=== PATIENT | male | born 2000 | race African-American/Black ===

== ENCOUNTER 2019-06-10 21:31 | Emergency (ER) | payer SELFPAY ==
[2019-06-10] MEDS ORDERED: Bicillin LA 1.2 MILLION UNITS/2 ML SYRINGE ONE (22:02)
[2019-06-10] MEDS ORDERED: Dexamethasone 10 MG/ML VIAL ONE (22:02)
== END 2019-06-10 22:29 | disposition home or self-care (01) ==
LOC: ERS 21:31
DX: J02.0 Streptococcal pharyngitis (principal)
CPT/HCPCS: 87081; 87430; 96372; 99283; J0561; J1100

== ENCOUNTER 2019-08-06 23:28 | Emergency (ER) | payer SELFPAY | END 2019-08-07 00:07 | disposition home or self-care (01) | LOC: ERS 23:28 | DX: J02.0 Streptococcal pharyngitis (principal) | CPT/HCPCS: 99282 ==